=== PATIENT | male | born 1985 | race Hispanic/Latino ===

== ENCOUNTER 2022-07-11 08:07 | Emergency (ER) | payer SELFPAY ==
--- NOTE | ~2022-07-11 | XR_ITS ---
EXAMINATION: XR lumbar spine 2-3V DATE: 07/11/2022 09:21 INDICATION: Low back pain TECHNIQUE: Anteroposterior and lateral views of the lumbar spine, and cone-down lateral view of the l umbosacral junction were obtained. COMPARISON: None. FINDINGS: There are 3 mm of anterolisthesis of L5 on S1. The vertebral body heights and intervertebra l disc spaces are normal. Small degenerative osteophytes project from the anterior endplates of multi ple vertebral bodies. There is mild facet joint osteoarthritis at L5-S1. No fracture is identified. IMPRESSION: 1. Mild lumbar spondylosis without acute findings. Reviewed, dictated and finalized at location B.
[2022-07-11 08:16] VITALS: BP 135/90; PULSE 70; RESP 16; TEMP 36.1; O2SAT 98
--- NOTE | 2022-07-11 09:07 | ED.BACK ---
HPI - Back Pain/Injury General Chief Complaint: Back Pain/Injury Stated Complaint: back pain Time Seen by Provider: 07/11/22 08:52 History of Present Illness HPI Narrative: 37-year-old male with no medical problems presents to the emergency room for evaluation of left lower back pain that began yesterday after coughing. Patient states the pain is worse when he rotates his trunk to the right and when he bends forward. Abdominal months of relief of symptoms. Patient denies any radicular pain, paresthesias, saddle anesthesia, or difficulty voiding. 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 Related Data Allergies Allergy/AdvReac Type Severity Reaction Status Date / Time No Known Allergies Allergy Verified 07/11/22 10:28 Review of Systems Review of Systems: CONSTITUTIONAL: Denies fever, chills, or sweats. EYES: Denies visual changes, redness, or discharge. ENT: Denies rhinorrhea, congestion, sore throat, or otalgia. CARDIOVASCULAR: Denies chest pain, palpitations, or edema. RESPIRATORY: Denies cough or dyspnea. GASTROINTESTINAL: Denies abdominal pain, nausea, vomiting, or diarrhea. GENITOURINARY: Denies dysuria or hematuria. SKIN: Denies rash or itching. MUSCULOSKELETAL: Reports low back pain NEUROLOGIC: Denies headache, numbness, dizziness, or weakness. PSYCHIATRIC: Denies anxiety or depression. Exam Narrative: GENERAL: Well-appearing, well-nourished, no physical limitations, and in no acute distress. HEAD: Normocephalic, atraumatic. EYES: Conjunctivae normal, PERRLA and EOMI. CHEST: Clear to auscultation. No respiratory distress. No wheezes rales or rhonchi. No tenderness. HEART: Regular rate and rhythm. No murmur heard. Normal peripheral pulses. ABDOMEN: Soft, nontender, nondistended, normal active bowel sounds. BACK: No CVA tenderness; No midline cervical/thoracic/lumbar tenderness, step-offs, bony abnormality; pain elicited with right rotation and flexion of the lower back. Neurovascular is distally intact. Tenderness to the left thoracolumbar fascia EXTREMITIES: Normal range of motion. No edema. No clubbing or cyanosis SKIN: Warm, dry, no rash. No noted wounds NEURO: No focal deficits. Alert and oriented x3. MAEW. CN's II-XI intact bilaterally, normal gait PSYCH: Cooperative. Normal mood and affect. Course Vital Signs Vital signs: Vital Signs Temperature 36.1 C L 07/11/22 08:16 Pulse Rate 70 07/11/22 08:16 Respiratory Rate 16 07/11/22 08:16 Blood Pressure 135/90 07/11/22 08:16 Pulse Oximetry 98 07/11/22 08:16 Oxygen Delivery Room Air 07/11/22 08:16 Temperature 36.1 C L 07/11/22 08:16 Pulse Rate 70 07/11/22 08:16 Respiratory Rate 16 07/11/22 08:16 Blood Pressure 135/90 07/11/22 08:16 Pulse Oximetry 98 07/11/22 08:16 Oxygen Delivery Room Air 07/11/22 08:16 MDM - Back Pain/Injury Lab Data Labs: Lab Results 07/11/22 Range/Units 10:08 Urine Color Yellow (Yellow) Urine Appearance Clear (Clear) Urine pH 6.0 (5.0-9.0) Ur Specific [place] 1.019 (1.001-1.035) Urine Protein Negative (Negative) mg/dL Urine Glucose (UA) Negative (Negative) mg/dL Urine Ketones Negative (Negative) mg/dL Ur Blood (Man) Negative (Negative) Urine Nitrate Negative (Negative) Urine Bilirubin Negative (Negative) Urine Urobilinogen Negative (<2.0) mg/dL Leukocyte Esterase Rfl Negative (Negative) DARION/UL Imaging Data Radiologist's impression: Impressions Lumbar Spine X-Ray 07/11/22 09:28 IMPRESSION: 1. Mild lumbar spondylosis without acute findings. Discharge Plan Discharge Clinical Impression: Strain of lumbar region Patient Disposition: Home, Self-Care Condition: Stable Instructions: Antibiotic Form, Acute Low Back Pain (ED) Prescriptions: New methocarbamol 500 mg tablet 500 mg PO TID Qty: 20 0RF Follow-up/Referrals: PHYSICIAN,LOBBY PORTER [Primary Care Provider] - Time of Dispos
[2022-07-11 10:16] LABS: Add Urine Microscopic? NO; Appearance Urine Clear (Clear); Bilirubin Urine Negative (Negative); Blood Urine Negative (Negative); Color Urine Yellow (Yellow); Glucose Urine UA Negative (Negative); Ketones Urine Negative (Negative); Leukocyte Esterase Ur Negative LEU/UL (Negative); Nitrate Urine Negative (Negative); Protein Urine Negative (Negative); Specific Grav Ur 1.019 (1.001-1.035); Urobilinogen Urine Negative mg/dL (<2.0)
== END 2022-07-11 11:00 | disposition home or self-care (01) ==
PROVIDERS: Emergency Medicine; Emergency Provider Nurse Practitioner Family
DX: S39.012A Strain of muscle, fascia and tendon of lower back, initial encounter (principal); M47.816 Spondylosis without myelopathy or radiculopathy, lumbar region; X50.9XXA Other and unspecified overexertion or strenuous movements or postures, initial encounter
CPT/HCPCS: 72100; 81003; 99283

== ENCOUNTER 2023-12-08 10:16 | Emergency (ER) | payer SELFPAY ==
[2023-12-08 10:20] VITALS: BP 170/102; PULSE 73; RESP 18; TEMP 36.6; O2SAT 96
--- NOTE | 2023-12-08 12:02 | ED.GENADULT ---
HPI - General Adult General Chief complaint: Ear Stated complaint: Ear pain Time Seen by Provider: 12/08/23 11:20 History of Present Illness HPI narrative: Jaxon Sow is a 38 y/o [place] speaking male. Through the supreme court justice pt explains he has been have left ear pain for 3 days. He states he went to an UC 3 days ago and was started on antibiotics Amoxicillin but he is still in pain. No known fevers/ sore throat/ cough / no mastoid tenderness. Related Data Allergies Allergy/AdvReac Type Severity Reaction Status Date / Time No Known Allergies Allergy Verified 12/08/23 11:28 Review of Systems Review of Systems: All systems reviewed & are unremarkable except as noted in HPI and below Exam Narrative: GENERAL: Well-appearing, well-nourished, and in no acute distress. HEAD: Normocephalic, atraumatic. EYES: PERRLA and EOMI. ENT: Nares clear, no rhinorrhea or epistaxis. Mucous membranes moist. Oropharynx without tonsillar hypertrophy exudate or other lesions. Left TM + erythemic and retracting right TM pearly richards - NECK: Supple. No adenopathy or masses. No carotid bruits or JVD CHEST: Clear to auscultation. No respiratory distress. No wheezes rales or rhonchi HEART: Regular rate and rhythm. No murmur heard. Normal peripheral pulses. ABDOMEN: Soft, nontender, nondistended, normal active bowel sounds. EXTREMITIES: Normal range of motion. No edema. SKIN: Warm, dry, no rash. NEURO: No focal deficits. Alert and oriented x3. PSYCH: Normal mood and affect. Course Vital Signs Vital signs: Vital Signs Temperature 36.6 C 12/08/23 10:20 Pulse Rate 73 12/08/23 10:20 Respiratory Rate 18 12/08/23 10:20 Blood Pressure 170/102 H 12/08/23 10:20 Pulse Oximetry 96 12/08/23 10:20 Temperature 36.6 C 12/08/23 10:20 Pulse Rate 73 12/08/23 10:20 Respiratory Rate 18 12/08/23 10:20 Blood Pressure 170/102 H 12/08/23 10:20 Pulse Oximetry 96 12/08/23 10:20 Medical Decision Making [facility] Narrative Medical decision making narrative: Exam consistent with left otitis media, will give him a dose of Naproxen here. Encouraged pt to continue his PO antibiotics as ordered, and offered ENT to follow as needed He feels comfortable with this and all questions answered through the supreme court justice. Medical Records Medical records reviewed: Yes I reviewed the external patient's medical records. Vital Signs Vital Signs: Vital Signs Temperature 36.6 C 12/08/23 10:20 Pulse Rate 73 12/08/23 10:20 Respiratory Rate 18 12/08/23 10:20 Blood Pressure 170/102 H 12/08/23 10:20 Pulse Oximetry 96 12/08/23 10:20 Temperature 36.6 C 12/08/23 10:20 Pulse Rate 73 12/08/23 10:20 Respiratory Rate 18 12/08/23 10:20 Blood Pressure 170/102 H 12/08/23 10:20 Pulse Oximetry 96 12/08/23 10:20 Discharge Plan Discharge Clinical Impression: Otitis media Qualifiers: Otitis media type: unspecified Laterality: left Qualified Code(s): H66.92 - Otitis media, unspecified, left ear Patient Disposition: Home, Self-Care Condition: Stable Instructions: Antibiotic Form Additional Instructions: Continue the Amoxicillin as ordered for your left ear infection You may also take the Naproxen twice daily for pain as ordered You may also follow up with ENT as discussed If you develop any worsening symptoms or concerns then your should return to the ED. Prescriptions: New naproxen 500 mg tablet 500 mg PO BID PRN (Reason: pain) Qty: 28 0RF No Action methocarbamol 500 mg tablet 500 mg PO TID Qty: 20 0RF Follow-up/Referrals: Sánchez Lou MD [Physician] - 1 Week UNKNOWN,DOCTOR [Primary Care Provider] - Time of Disposition: 12:11
[2023-12-08] MEDS: NAPROXEN 500 MG TABLET PO (12:12)
[2023-12-08 12:23] VITALS: BP 124/81; PULSE 81; RESP 15; TEMP 36.6; O2SAT 98
== END 2023-12-08 12:23 | disposition home or self-care (01) ==
PROVIDERS: Emergency Provider Nurse Practitioner Family
DX: H66.92 Otitis media, unspecified, left ear (principal)
CPT/HCPCS: 99283; A9270